=== PATIENT | female | born 1970 | race Hispanic/Latino ===

== ENCOUNTER 2020-07-07 20:02 | Emergency (ER) | payer OTHER ==
[~2020-07-07] VITALS: Ht 154.9 cm; Wt 80.7 kg
[2020-07-07] MEDS ORDERED: ACETAMINOPHEN 325 MG TAB PO ONE (20:15)
[2020-07-07] MEDS ORDERED: ACETAMINOPHEN 325 MG TAB ONE (20:24)
[2020-07-07] MEDS ORDERED: ONDANSETRON HCL 4 MG ORAL DISINTEGRATING TAB ONE (20:24)
[2020-07-07] MEDS ORDERED: ONDANSETRON HCL 4 MG ORAL DISINTEGRATING TAB PO ONE (20:30)
== END 2020-07-07 21:10 | disposition home or self-care (01) ==
LOC: ER 20:06
DX: U07.1 COVID-19 (principal); R50.9 Fever, unspecified; R06.00 Dyspnea, unspecified; R05 Cough; I10 Essential (primary) hypertension; E11.9 Type 2 diabetes mellitus without complications
CPT/HCPCS: 99283; Q0162